=== PATIENT | male | born 1965 ===

== ENCOUNTER 2019-05-30 19:04 | Observation (INO) | payer BC ==
[2019-05-30] MEDS ORDERED: Sodium Chloride 0.9% 1,000 ML IV ONE (19:45)
[2019-05-30] MEDS ORDERED: Sodium Chloride 0.9% 10 ML Syringe FLUSH PRN (19:45)
[2019-05-30] MEDS ORDERED: Sodium Chloride 0.9% 2.5 ML Syringe FLUSH PRN (19:45)
[2019-05-30] MEDS ORDERED: Ketorolac 30 MG/ML SDV IVPUSH ONE (19:45)
[2019-05-30] MEDS ORDERED: diphenhydrAMINE 50 MG/ML SDV IVPUSH ONE (19:45)
[2019-05-30] MEDS ORDERED: methylPREDNISolone Sodium Succinate 125 MG/2 ML SDV IVPUSH ONE (19:45)
--- NOTE | 2019-05-30 19:49 | EDM.PDOC ---
ED HPI GENERAL MEDICAL PROBLEM - General Chief Complaint: Skin Complaint Stated Complaint: ABDOMINAL RASH Time Seen by Provider: 05/30/19 19:39 - History of Present Illness INITIAL COMMENTS - FREE TEXT/NARRATIVE: HISTORY AND PHYSICAL: History of present illness: The patient is a 53-year-old male with no stated medical history who takes no regular medications and presents with 2 problems, the first is a 1 week history of lightheadedness malaise generalized weakness feeling rundown but no specific fever cough chest pain abdominal pain vomiting or diarrhea. His second complaint is that yesterday he started getting a rash on his chest and abdomen which was raised red and itchy and burning and it has progressed to the rest of his body. He has taken 1 dose of Benadryl yesterday which did not help and 1 Tylenol PM this evening. He states he has no new foods in his world or any new products. He says it is burning and itchy but he does not feel short of breath or have any facial or oropharyngeal swelling and no trouble swallowing. The patient says he has been had this dizziness and lightheadedness which is very vague for the last 1 week and feeling rundown but he is not passing out or blacking out and has no head neck or back pain no other associated symptoms. He says that he has been pushing hydration and eating normally. He tells me that his urine is very dark and concentrated but he has no flank pain and no pelvic pain. Currently in the ED he is only complaining of the rash and the burning and itching as well as concern about his other symptoms that are been ongoing for the last 1 week. No focal extremity weakness or tingling and he has been able to go to work and perform his duties despite the symptoms for the last 1 week Review of systems: As per history of present illness and below otherwise all systems reviewed and negative. Past medical history: As per history of present illness and as reviewed below otherwise noncontributory. Surgical history: As per history of present illness and as reviewed below otherwise noncontributory. Social history: No reported history of drug or alcohol abuse. Family history: As per history of present illness and as reviewed below otherwise noncontributory. Physical exam: Well-developed well-nourished man who clearly has an urticarial/maculopapular rash all over his body clearly seen on arrival to the room. Vital signs are noted by me. He speaking clearly without breathlessness hoarse or muffled voice HEENT: Atraumatic, normocephalic, pupils reactive, negative for conjunctival pallor or scleral icterus, mucous membranes moist, throat clear, neck supple, nontender, trachea midline. No oropharyngeal lesions are seen and no cervical adenopathy either anteriorly or posteriorly, and no nuchal rigidity Lungs: Clear to auscultation, breath sounds equal bilaterally, chest nontender. Heart: S1S2, regular, negative for clicks, rubs, or JVD. Abdomen: Soft, nondistended, nontender. Negative for masses or hepatosplenomegaly. Negative for costovertebral tenderness. Do not appreciate any specific tenderness in the liver or spleen areas nor any enlargement. Pelvis: Stable nontender. Genitourinary: Deferred. Rectal: Deferred. Extremities: Atraumatic, negative for cords or calf pain. Neurovascular unremarkable. Neuro: Awake, alert, oriented. Cranial nerves II through XII unremarkable. Cerebellum unremarkable. Motor and sensory unremarkable throughout. Exam nonfocal. Skin: Throughout the body there is a maculopapular/urticarial rash with areas of coalescence seen the most noteworthy is on the trunk and the upper chest and abdomen as well as the upper back but it is all over the extremities his face and his scalp. There were no vesicles Diagnostics: EKG CBC CMP chest x-ray troponin INR UA with reflex rapid strep influenza lactic acid mono screnn Therapeutics: IV fluids Benadryl Solu-Medrol Toradol vistaril 0: All testing results were discussed with the patient and her hospitalist Dr. Joshua and the patient will be admitted for observation. Impression: Mononucleosis syndrome Definitive disposition and diagnosis as appropriate pending reevaluation and review of above. Treatments K[employer] HEAD: Reports: Acetaminophen - Related Data Allergies Allergy/AdvReac Type Severity Reaction Status Date / Time No Known Allergies Allergy Verified 05/30/19 19:31 Home Meds: Home Meds . [No Known Home Meds] 05/30/19 [History] ED ROS GENERAL - Review of Systems Review Of Systems: Comprehensive ROS is negative, except as noted in HPI. ED EXAM, SKIN/RASH Exam: See Below (see Dictation) Course - Vital Signs Last Recorded V/S: Last Vital Signs Temp 36.7 C 05/30/19 19:25 Pulse 95 05/30/19 19:25 Resp 18 05/30/19 19:25 BP 142/86 H 05/30/19 19:25 Pulse Ox 98 05/30/19 19:25 - Orders/Labs/Meds Orders: Active Orders 24 hr Category Date Time Status Patient Status [ADT] Stat ADT 05/30/19 21:23 Ordered EKG Documentation Completion [RC] STAT Care 05/30/19 19:44 Active CULTURE STREP A CONFIRMATION [] Stat Lab 05/30/19 20:30 Results STREP SCRN A RAPID W CULT CONF [] Stat Lab 05/30/19 20:30 Results Sodium Chloride 0.9% [Normal Saline] 1,000 ml Med 05/30/19 21:30 Active IV ASDIRECTED Sodium Chloride 0.9% [Saline Flush] Med 05/30/19 19:45 Active 10 ml FLUSH ASDIRECTED PRN Sodium Chloride 0.9% [Saline Flush] Med 05/30/19 19:45 Active 2.5 ml FLUSH ASDIRECTED PRN Saline Lock Insert [OM.PC] Stat Oth 05/30/19 19:44 Ordered Medication Orders Sodium Chloride (Normal Saline) 1,000 mls @ 150 mls/hr IV ASDIRECTED ALYSSA Sodium Chloride (Saline Flush) 10 ml FLUSH ASDIRECTED PRN PRN Reason: Keep Vein Open Sodium Chloride (Saline Flush) 2.5 ml FLUSH ASDIRECTED PRN PRN Reason: Keep Vein Open Labs: Laboratory Tests 05/30/19 05/30/19 05/30/19 Range/Units 20:00 20:00 20:00 WBC 29.69 H (4.0-11.0) K/uL RBC 4.99 (4.50-5.90) M/uL Hgb 14.3 (13.0-17.0) g/dL Hct 41.5 (38.0-50.0) % MCV 83.2 (80.0-98.0) fL MCH 28.7 (27.0-32.0) pg MCHC 34.5 (31.0-37.0) g/dL RDW Std Deviation 45.3 (28.0-62.0) fl RDW Coeff of Palak 15 (11.0-15.0) % Plt Count 317 (150-400) K/uL MPV 10.20 (7.40-12.00) fL Add Manual Diff YES Neutrophils % (Manual) 10 L (48.0-80.0) % Band Neutrophils % 9 % Lymphocytes % (Manual) 69 H (16.0-40.0) % Monocytes % (Manual) 12 (0.0-15.0) % Nucleated RBC % 3.0 /100WBC Absolute Seg Neuts 3.0 (1.4-5.7) Band Neutrophils # 2.7 Lymphocytes # (Manual) 20.5 H (0.6-2.4) Monocytes # (Manual) 3.6 H (0.0-0.8) Nucleated RBCs # 0 K/uL INR 0.99 Lactate 1.1 (0.20-2.00) mmol/L Sodium (136-148) mmol/L Potassium (3.5-5.1) mmol/L Chloride (98-107) mmol/L Carbon Dioxide (21.0-32.0) mmol/L BUN (7.0-18.0) mg/dL Creatinine (0.8-1.3) mg/dL Est Cr Clr Drug Dosing mL/min Estimated GFR (MDRD) ml/min Glucose (74-106) mg/dL Calcium (8.5-10.1) mg/dL Total Bilirubin (0.2-1.0) mg/dL AST (15-37) IU/L ALT (14-63) IU/L Alkaline Phosphatase (46-116) U/L Troponin I (0.000-0.056) ng/mL Total Protein (6.4-8.2) g/dL Albumin (3.4-5.0) g/dL Globulin (2.6-4.0) g/dL Albumin/Globulin Ratio (0.9-1.6) Urine Color Urine Appearance Urine pH (5.0-8.0) Ur Specific Fox (1.001-1.035) Urine Protein (NEGATIVE) mg/dL Urine Glucose (UA) (NEGATIVE) mg/dL Urine Ketones (NEGATIVE) mg/dL Urine Occult Blood (NEGATIVE) Urine Nitrite (NEGATIVE) Urine Bilirubin (NEGATIVE) Urine Ictotest Urine Urobilinogen (<2.0) EU/dL Ur Leukocyte Esterase (NEGATIVE) Monoscreen (NEG) 05/30/19 05/30/19 05/30/19 Range/Units 20:00 20:20 20:35 WBC (4.0-11.0) K/uL RBC (4.50-5.90) M/uL Hgb (13.0-17.0) g/dL Hct (38.0-50.0) % MCV (80.0-98.0) fL MCH (27.0-32.0) pg MCHC (31.0-37.0) g/dL RDW Std Deviation (28.0-62.0) fl RDW Coeff of Palak (11.0-15.0) % Plt Count (150-400) K/uL MPV (7.40-12.00) fL Add Manual Diff Neutrophils % (Manual) (48.0-80.0) % Band Neutrophils % % Lymphocytes % (Manual) (16.0-40.0) % Monocytes % (Manual) (0.0-15.0) % Nucleated RBC % /100WBC Absolute Seg Neuts (1.4-5.7) Band Neutrophils # Lymphocytes # (Manual) (0.6-2.4) Monocytes # (Manual) (0.0-0.8) Nucleated RBCs # K/uL INR Lactate (0.20-2.00) mmol/L Sodium 133 L (136-148) mmol/L Potassium 4.2 (3.5-5.1) mmol/L Chloride 96 L (98-107) mmol/L Carbon Dioxide 27.7 (21.0-32.0) mmol/L BUN 16 (7.0-18.0) mg/dL Creatinine 1.1 (0.8-1.3) mg/dL Est Cr Clr Drug Dosing 87.20 mL/min Estimated GFR (MDRD) > 60.0 ml/min Glucose 107 H (74-106) mg/dL Calcium 8.8 (8.5-10.1) mg/dL Total Bilirubin 5.8 H (0.2-1.0) mg/dL AST 115 H (15-37) IU/L ALT 242 H (14-63) IU/L Alkaline Phosphatase 501 H (46-116) U/L Troponin I < 0.050 (0.000-0.056) ng/mL Total Protein 7.3 (6.4-8.2) g/dL Albumin 3.1 L (3.4-5.0) g/dL Globulin 4.2 H (2.6-4.0) g/dL Albumin/Globulin Ratio 0.7 L (0.9-1.6) Urine Color YELLOW Urine Appearance CLEAR Urine pH 5.5 (5.0-8.0) Ur Specific Fox <= 1.005 (1.001-1.035) Urine Protein NEGATIVE (NEGATIVE) mg/dL Urine Glucose (UA) NEGATIVE (NEGATIVE) mg/dL Urine Ketones NEGATIVE (NEGATIVE) mg/dL Urine Occult Blood NEGATIVE (NEGATIVE) Urine Nitrite NEGATIVE (NEGATIVE) Urine Bilirubin MODERATE H (NEGATIVE) Urine Ictotest POSITIVE Urine Urobilinogen 0.2 (<2.0) EU/dL Ur Leukocyte Esterase NEGATIVE (NEGATIVE) Monoscreen POSITIVE (NEG) Meds: Medications Generic Name Dose Route Start Last Admin Trade Name Freq PRN Reason Stop Dose Admin Sodium Chloride 1,000 mls @ 150 mls/hr 05/30/19 21:30 Normal Saline IV ASDIRECTED ALYSSA Sodium Chloride 10 ml 05/30/19 19:45 Saline Flush FLUSH ASDIRECTED PRN Keep Vein Open Sodium Chloride 2.5 ml 05/30/19 19:45 Saline Flush FLUSH ASDIRECTED PRN Keep Vein Open Discontinued Medications Generic Name Dose Route Start Last Admin Trade Name Freq PRN Reason Stop Dose Admin Diphenhydramine HCl 50 mg 05/30/19 19:45 05/30/19 20:03 Benadryl IVPUSH 05/30/19 19:46 50 mg ONETIME ONE Administration Hydroxyzine Pamoate 25 mg 05/30/19 21:18 Vistaril PO 05/30/19 21:19 ONETIME ONE Sodium Chloride 1,000 mls @ 999 mls/hr 05/30/19 19:45 05/30/19 20:03 Normal Saline IV 05/30/19 20:45 999 mls/hr STAT ONE Administration Ketorolac Tromethamine 30 mg 05/30/19 19:45 05/30/19 20:03 Toradol IVPUSH 05/30/19 19:46 30 mg ONETIME ONE Administration Methylprednisolone Sodium Succinate 125 mg 05/30/19 19:45 05/30/19 20:03 Solu-Medrol IVPUSH 05/30/19 19:46 125 mg ONETIME ONE Administration Departure - Departure Time of Disposition: 21:25 Disposition: Refer to Observation Condition: Good Clinical Impression: Mononucleosis syndrome - Discharge Information Referrals: PCP,Not In Area [Primary Care Provider] - Forms: ED Department Discharge Sepsis Event Note - Evaluation Sepsis Screening Result: No Definite Risk - Focused Exam Vital Signs: Vital Signs Temp Pulse Resp BP Pulse Ox 05/30/19 19:25 36.7 C 95 18 142/86 H 98 Date Exam was Performed: 05/30/19 Time Exam was Performed: 21:24 - My Orders Last 24 Hours: My Active Orders 05/30/19 19:44 EKG Documentation Completion [RC] STAT Saline Lock Insert [OM.PC] Stat 05/30/19 19:45 Sodium Chloride 0.9% [Saline Flush] 10 ml FLUSH ASDIRECTED PRN Sodium Chloride 0.9% [Saline Flush] 2.5 ml FLUSH ASDIRECTED PRN 05/30/19 20:30 CULTURE STREP A CONFIRMATION [RM] Stat STREP SCRN A RAPID W CULT CONF [RM] Stat 05/30/19 21:23 Patient Status [ADT] Stat 05/30/19 21:30 Sodium Chloride 0.9% [Normal Saline] 1,000 ml IV ASDIRECTED - Assessment/Plan Last 24 Hours: My Active Orders 05/30/19 19:44 EKG Documentation Completion [RC] STAT Saline Lock Insert [OM.PC] Stat 05/30/19 19:45 Sodium Chloride 0.9% [Saline Flush] 10 ml FLUSH ASDIRECTED PRN Sodium Chloride 0.9% [Saline Flush] 2.5 ml FLUSH ASDIRECTED PRN 05/30/19 20:30 CULTURE STREP A CONFIRMATION [RM] Stat STREP SCRN A RAPID W CULT CONF [RM] Stat 05/30/19 21:23 Patient Status [ADT] Stat 05/30/19 21:30 Sodium Chloride 0.9% [Normal Saline] 1,000 ml IV ASDIRECTED
[2019-05-30 20:41] LABS: BLOOD UREA NITROGEN,BUN 16 mg/dL (7.0-18.0); CARBON DIOXIDE,CO2 27.7 mmol/L (21.0-32.0); CHLORIDE,CL 96 mmol/L (98-107); GLUCOSE RANDOM 107 mg/dL (74-106); POTASSIUM,K 4.2 mmol/L (3.5-5.1); SODIUM,NA 133 mmol/L (136-148)
--- NOTE | 2019-05-30 20:47 | CR ---
Chest: Frontal view of the chest was obtained. Comparison: No prior chest x-ray. Heart size and mediastinum are normal. Minimal left midlung atelectasis is noted. Lungs otherwise are clear. Bony structures are grossly intact. Impression: 1. Minimal left midlung atelectasis. 2. Nothing acute is otherwise appreciated on frontal chest x-ray. Diagnostic code #2 Study was dictated in [place] Standard Time
[2019-05-30] MEDS ORDERED: hydrOXYzine Pamoate 25 MG Cap PO ONE (21:18)
[2019-05-30] MEDS ORDERED: Sodium Chloride 0.9% 1,000 ML IV SCH (21:30)
[2019-05-31] MEDS: Sodium Chloride 0.9% 1,000 ML IV SCH ×3 (05:03→21:14)
[2019-05-31 06:52] LABS: BLOOD UREA NITROGEN,BUN 16 mg/dL (7.0-18.0); CARBON DIOXIDE,CO2 26.2 mmol/L (21.0-32.0); CHLORIDE,CL 105 mmol/L (98-107); GLUCOSE RANDOM 159 mg/dL (74-106); POTASSIUM,K 4.9 mmol/L (3.5-5.1); SODIUM,NA 138 mmol/L (136-148)
[2019-05-31] MEDS ORDERED: Ondansetron 4 MG/2 ML SDV IVPUSH PRN (10:52)
--- NOTE | 2019-05-31 10:59 | PCM.HP.2 ---
H&P History of Present Illness - General Date of Service: 05/31/19 Admit Problem/Dx: Admission Diagnosis/Problem Admission Diagnosis/Problem Mononucleosis syndrome Source of Information: Patient History Limitations: Reports: No Limitations - History of Present Illness Initial Comments - Free Text/Narative: This 53 year old male, otherwise healthy presented to the ED with complaints of rash that started yesterday morning and progressively worsened through the day. He reports it was itching and noticed it started to spread from his trunk to arms and legs. He reports over the last couple weeks he has felt very fatigued and had a poor appetite and little interest in eating. He reports he has beeen taking some Vitamin C daily with [place] seltzer cold and flu twice daily. He reports some night sweats, no overt fevers. No URI symptoms such as sore throat or sinus congestion, no swollen tender lymph nodes to neck. No abdominal pain or trouble urinating. Reports dark urine the last few days. No chest pain or SOB. No diarrhea or constipation. No swelling or focal neurological deficits. He reports he drinks beer 4 nights a week 2-6 daily, 6 more so on the weekends. He denies tobacco or recreational drug use. In the ED Leukocytosis noted 26,6900, neutrophils decreased along with elevated lymphocytes.Cl 96 Bilirubin elevated at 5.8 AST 115, ALT 242 and alk phos 501. CXR negative. [place] screen positive. - Related Data Allergies/Adverse Reactions: Allergies Allergy/AdvReac Type Severity Reaction Status Date / Time No Known Allergies Allergy Verified 05/31/19 06:31 Home Medications: Home Meds . [No Known Home Meds] 05/30/19 [History] Past Medical History HEENT History: Reports: None Cardiovascular History: Reports: None. Denies: Afib, Hypertension Respiratory History: Reports: None. Denies: COPD Gastrointestinal History: Reports: None. Denies: GI Bleed Genitourinary History: Reports: None. Denies: Chronic Renal Insuffiency Musculoskeletal History: Reports: None Neurological History: Reports: None Psychiatric History: Reports: None Endocrine/Metabolic History: Reports: None. Denies: Diabetes, Type II Insulin Pump Model and Automotive Detailer: None Hematologic History: Reports: None Oncologic (Cancer) History: Reports: None Dermatologic History: Reports: None - Infectious Disease History Infectious Disease History: Reports: None - Past Surgical History Head Surgeries/Procedures: Reports: None HEENT Surgical History: Reports: Tonsillectomy Social & Family History - Family History Family Medical History: Noncontributory - Tobacco Use Smoking Status *Q: Never Smoker Second Hand Smoke Exposure: No - Caffeine Use Caffeine Use: Reports: Coffee - Alcohol Use Days Per Week of Alcohol Use: 1 Number of Drinks Per Day: 0 Total Drinks Per Week: 0 Date of Last Drink: 05/29/19 Time of Last Drink: 20:00 - Recreational Drug Use Recreational Drug Use: No - Living Situation & Occupation Occupation: Employed H&P Review of Systems - Review of Systems: Review Of Systems: See Below General: Reports: Malaise, Weakness, Fatigue, Night Sweats, Decreased Appetite. Denies: Fever, Chills HEENT: Reports: Headaches, Vertigo. Denies: Sinus Congestion, Sore Throat Pulmonary: Reports: No Symptoms. Denies: Shortness of Breath Cardiovascular: Reports: No Symptoms. Denies: Chest Pain Gastrointestinal: Reports: No Symptoms. Denies: Abdominal Pain, Black Stool, Bloody Stool, Nausea, Vomiting Musculoskeletal: Reports: No Symptoms. Denies: Neck Pain Neurological: Reports: No Symptoms Hematologic/Lymphatic: Reports: No Symptoms Immunologic: Reports: No Symptoms Exam - Exam Exam: See Below - Vital Signs Vital Signs: Last Vital Signs Temp 98.1 F 05/31/19 07:00 Pulse 80 05/31/19 07:00 Resp 18 05/31/19 07:00 BP 111/69 05/31/19 07:00 Pulse Ox 95 05/31/19 07:00 Weight: 92.986 kg - Exam General: Alert, Oriented, Cooperative HEENT: Mucosa Moist & [place], Pupils Reactive, Scleral Icterus Neck: Supple, Full Range of Motion. No: Lymphadenopathy Lungs: Clear to Auscultation, Normal Respiratory Effort Cardiovascular: Regular Rate, Regular Rhythm GI/Abdominal Exam: Normal Bowel Sounds, Soft, Non-Tender, Splenomegaly Back Exam: Normal Inspection, Full Range of Motion Extremities: Normal Inspection, Normal Range of Motion, Non-Tender, No Pedal Edema Skin: Rash (maculopapular rash noted to trunk inner thighs and arms bilaterally , flushed face and neck noted as well. ) Neuro Extensive - Mental Status: Alert, Oriented x3 Neuro Extensive - Motor, Sensory, Reflexes: CN II-XII Intact Psychiatric: Alert, Normal Affect, Normal Mood - Patient Data Lab Results Last 24 hrs: Laboratory Results - last 24 hr 05/30/19 05/30/19 05/30/19 Range/Units 20:00 20:00 20:00 WBC 29.69 H (4.0-11.0) K/uL RBC 4.99 (4.50-5.90) M/uL Hgb 14.3 (13.0-17.0) g/dL Hct 41.5 (38.0-50.0) % MCV 83.2 (80.0-98.0) fL MCH 28.7 (27.0-32.0) pg MCHC 34.5 (31.0-37.0) g/dL RDW Std Deviation 45.3 (28.0-62.0) fl RDW Coeff of Palak 15 (11.0-15.0) % Plt Count 317 (150-400) K/uL MPV 10.20 (7.40-12.00) fL Add Manual Diff YES Neutrophils % (Manual) 10 L (48.0-80.0) % Band Neutrophils % 9 % Lymphocytes % (Manual) 69 H (16.0-40.0) % Monocytes % (Manual) 12 (0.0-15.0) % Nucleated RBC % 3.0 /100WBC Absolute Seg Neuts 3.0 (1.4-5.7) Band Neutrophils # 2.7 Lymphocytes # (Manual) 20.5 H (0.6-2.4) Monocytes # (Manual) 3.6 H (0.0-0.8) Nucleated RBCs # 0 K/uL Reactive Lymphocytes INR 0.99 Lactate 1.1 (0.20-2.00) mmol/L Sodium (136-148) mmol/L Potassium (3.5-5.1) mmol/L Chloride (98-107) mmol/L Carbon Dioxide (21.0-32.0) mmol/L BUN (7.0-18.0) mg/dL Creatinine (0.8-1.3) mg/dL Est Cr Clr Drug Dosing mL/min Estimated GFR (MDRD) ml/min Glucose (74-106) mg/dL Calcium (8.5-10.1) mg/dL Total Bilirubin (0.2-1.0) mg/dL AST (15-37) IU/L ALT (14-63) IU/L Alkaline Phosphatase (46-116) U/L Troponin I (0.000-0.056) ng/mL Total Protein (6.4-8.2) g/dL Albumin (3.4-5.0) g/dL Globulin (2.6-4.0) g/dL Albumin/Globulin Ratio (0.9-1.6) Urine Color Urine Appearance Urine pH (5.0-8.0) Ur Specific Kinder (1.001-1.035) Urine Protein (NEGATIVE) mg/dL Urine Glucose (UA) (NEGATIVE) mg/dL Urine Ketones (NEGATIVE) mg/dL Urine Occult Blood (NEGATIVE) Urine Nitrite (NEGATIVE) Urine Bilirubin (NEGATIVE) Urine Ictotest Urine Urobilinogen (<2.0) EU/dL Ur Leukocyte Esterase (NEGATIVE) Monoscreen (NEG) 05/30/19 05/30/19 05/30/19 Range/Units 20:00 20:20 20:35 WBC (4.0-11.0) K/uL RBC (4.50-5.90) M/uL Hgb (13.0-17.0) g/dL Hct (38.0-50.0) % MCV (80.0-98.0) fL MCH (27.0-32.0) pg MCHC (31.0-37.0) g/dL RDW Std Deviation (28.0-62.0) fl RDW Coeff of Palak (11.0-15.0) % Plt Count (150-400) K/uL MPV (7.40-12.00) fL Add Manual Diff Neutrophils % (Manual) (48.0-80.0) % Band Neutrophils % % Lymphocytes % (Manual) (16.0-40.0) % Monocytes % (Manual) (0.0-15.0) % Nucleated RBC % /100WBC Absolute Seg Neuts (1.4-5.7) Band Neutrophils # Lymphocytes # (Manual) (0.6-2.4) Monocytes # (Manual) (0.0-0.8) Nucleated RBCs # K/uL Reactive Lymphocytes INR Lactate (0.20-2.00) mmol/L Sodium 133 L (136-148) mmol/L Potassium 4.2 (3.5-5.1) mmol/L Chloride 96 L (98-107) mmol/L Carbon Dioxide 27.7 (21.0-32.0) mmol/L BUN 16 (7.0-18.0) mg/dL Creatinine 1.1 (0.8-1.3) mg/dL Est Cr Clr Drug Dosing 87.20 mL/min Estimated GFR (MDRD) > 60.0 ml/min Glucose 107 H (74-106) mg/dL Calcium 8.8 (8.5-10.1) mg/dL Total Bilirubin 5.8 H (0.2-1.0) mg/dL AST 115 H (15-37) IU/L ALT 242 H (14-63) IU/L Alkaline Phosphatase 501 H (46-116) U/L Troponin I < 0.050 (0.000-0.056) ng/mL Total Protein 7.3 (6.4-8.2) g/dL Albumin 3.1 L (3.4-5.0) g/dL Globulin 4.2 H (2.6-4.0) g/dL Albumin/Globulin Ratio 0.7 L (0.9-1.6) Urine Color YELLOW Urine Appearance CLEAR Urine pH 5.5 (5.0-8.0) Ur Specific Kinder <= 1.005 (1.001-1.035) Urine Protein NEGATIVE (NEGATIVE) mg/dL Urine Glucose (UA) NEGATIVE (NEGATIVE) mg/dL Urine Ketones NEGATIVE (NEGATIVE) mg/dL Urine Occult Blood NEGATIVE (NEGATIVE) Urine Nitrite NEGATIVE (NEGATIVE) Urine Bilirubin MODERATE H (NEGATIVE) Urine Ictotest POSITIVE Urine Urobilinogen 0.2 (<2.0) EU/dL Ur Leukocyte Esterase NEGATIVE (NEGATIVE) Monoscreen POSITIVE (NEG) 05/31/19 05/31/19 Range/Units 06:15 06:15 WBC 15.16 H (4.0-11.0) K/uL RBC 4.78 (4.50-5.90) M/uL Hgb 13.5 (13.0-17.0) g/dL Hct 40.6 (38.0-50.0) % MCV 84.9 (80.0-98.0) fL MCH 28.2 (27.0-32.0) pg MCHC 33.3 (31.0-37.0) g/dL RDW Std Deviation 47.4 (28.0-62.0) fl RDW Coeff of Palak 15 (11.0-15.0) % Plt Count 283 (150-400) K/uL MPV 9.50 (7.40-12.00) fL Add Manual Diff YES Neutrophils % (Manual) 19 L (48.0-80.0) % Band Neutrophils % 4 % Lymphocytes % (Manual) 77 H (16.0-40.0) % Monocytes % (Manual) (0.0-15.0) % Nucleated RBC % 0.0 /100WBC Absolute Seg Neuts 2.9 (1.4-5.7) Band Neutrophils # 0.6 Lymphocytes # (Manual) 11.7 H (0.6-2.4) Monocytes # (Manual) (0.0-0.8) Nucleated RBCs # 0 K/uL Reactive Lymphocytes MODERATE INR Lactate (0.20-2.00) mmol/L Sodium 138 (136-148) mmol/L Potassium 4.9 (3.5-5.1) mmol/L Chloride 105 (98-107) mmol/L Carbon Dioxide 26.2 (21.0-32.0) mmol/L BUN 16 (7.0-18.0) mg/dL Creatinine 1.0 (0.8-1.3) mg/dL Est Cr Clr Drug Dosing 95.92 mL/min Estimated GFR (MDRD) > 60.0 ml/min Glucose 159 H (74-106) mg/dL Calcium 8.2 L (8.5-10.1) mg/dL Total Bilirubin 5.0 H (0.2-1.0) mg/dL AST 88 H (15-37) IU/L ALT 216 H (14-63) IU/L Alkaline Phosphatase 462 H (46-116) U/L Troponin I (0.000-0.056) ng/mL Total Protein 6.7 (6.4-8.2) g/dL Albumin 2.6 L (3.4-5.0) g/dL Globulin 4.1 H (2.6-4.0) g/dL Albumin/Globulin Ratio 0.6 L (0.9-1.6) Urine Color Urine Appearance Urine pH (5.0-8.0) Ur Specific Kinder (1.001-1.035) Urine Protein (NEGATIVE) mg/dL Urine Glucose (UA) (NEGATIVE) mg/dL Urine Ketones (NEGATIVE) mg/dL Urine Occult Blood (NEGATIVE) Urine Nitrite (NEGATIVE) Urine Bilirubin (NEGATIVE) Urine Ictotest Urine Urobilinogen (<2.0) EU/dL Ur Leukocyte Esterase (NEGATIVE) Monoscreen (NEG) Result Diagrams: 05/31/19 06:15 05/31/19 06:15 Nirav Results Last 24 hrs: Microbiology 05/30/19 20:30 Influenza Type A Antigen Screen - Final Nasopharyngeal Swab NEGATIVE INFLUENZA A VIRUS AG REFERENCE RANGE: NEGATIVE Influenza Type B Antigen Screen - Final NEGATIVE INFLUENZA B VIRUS AG REFERENCE RANGE: NEGATIVE 05/30/19 20:30 Group A Streptococcus Rapid Screen - Final Throat NEGATIVE STREP A SCREEN REFERENCE RANGE: NEGATIVE Sepsis Event Note - Evaluation Sepsis Screening Result: No Definite Risk - Focused Exam Vital Signs: Vital Signs Temp Pulse Resp BP Pulse Ox 05/31/19 07:00 98.1 F 80 18 111/69 95 05/31/19 03:37 97.3 F 75 18 111/68 96 Date Exam was Performed: 05/31/19 Time Exam was Performed: 11:10 - Problem List (1) Mononucleosis syndrome SNOMED Code(s): 415272039 ICD Code: B27.90 - INFECTIOUS MONONUCLEOSIS, UNSPECIFIED WITHOUT COMPLICATION Status: Acute Current Visit: Yes (2) Transaminitis SNOMED Code(s): 688512342, 623856143 ICD Code: R74.0 - NONSPEC ELEV OF LEVELS OF TRANSAMNS & LACTIC ACID DEHYDRGNSE Status: Acute Current Visit: Yes (3) Bilirubinemia SNOMED Code(s): 18623715 ICD Code: E80.6 - OTHER DISORDERS OF BILIRUBIN METABOLISM Status: Acute Current Visit: Yes Problem List Initiated/Reviewed/Updated: Yes Orders Last 24hrs: Active Orders 24 hr Category Date Time Status Patient Status [ADT] Stat ADT 05/30/19 21:23 Active Antiembolic Devices [RC] PER UNIT ROUTINE Care 05/31/19 10:53 Ordered Intake and Output [RC] QSHIFT Care 05/31/19 10:52 Ordered Oxygen Therapy [RC] PRN Care 05/31/19 10:52 Ordered Up With Assistance [RC] ASDIRECTED Care 05/31/19 10:52 Ordered VTE/DVT Education [RC] PER UNIT ROUTINE Care 05/31/19 10:52 Ordered Vital Signs [RC] Q4H Care 05/31/19 00:07 Active Vital Signs [RC] Q4H Care 05/31/19 10:52 Inactive Regular Diet [DIET] Diet 05/31/19 Breakfast Active Abdomen Ltd [US] Routine Exams 05/31/19 02:31 Ordered ACETAMINOPHEN [CHEM] Routine Lab 05/31/19 10:53 Ordered CBC WITH AUTO DIFF [HEME] AM Lab 06/01/19 05:11 Ordered COMPREHENSIVE METABOLIC PN,CMP [CHEM] AM Lab 06/01/19 05:11 Ordered CULTURE STREP A CONFIRMATION [RM] Stat Lab 05/30/19 20:30 Results HEPATITIS PANEL (4) [REF] Routine Lab 05/31/19 10:53 Ordered STREP SCRN A RAPID W CULT CONF [RM] Stat Lab 05/30/19 20:30 Results Ondansetron [Zofran] Med 05/31/19 10:52 Ordered 4 mg IVPUSH Q4H PRN Sodium Chloride 0.9% [Normal Saline] 1,000 ml Med 05/31/19 00:15 Active IV ASDIRECTED Sodium Chloride 0.9% [Saline Flush] Med 05/30/19 19:45 Active 10 ml FLUSH ASDIRECTED PRN Sodium Chloride 0.9% [Saline Flush] Med 05/30/19 19:45 Active 2.5 ml FLUSH ASDIRECTED PRN Saline Lock Insert [OM.PC] Stat Oth 05/30/19 19:44 Ordered Sequential Compression Device [OM.PC] Per Unit Routine Oth 05/31/19 10:53 Ordered Resuscitation Status Routine Resus Stat 05/31/19 10:52 Ordered Medication Orders Sodium Chloride (Normal Saline) 1,000 mls @ 125 mls/hr IV ASDIRECTED ALYSSA Last Admin: 05/31/19 05:03 Dose: 125 mls/hr Ondansetron HCl (Zofran) 4 mg IVPUSH Q4H PRN PRN Reason: Nausea Sodium Chloride (Saline Flush) 10 ml FLUSH ASDIRECTED PRN PRN Reason: Keep Vein Open Sodium Chloride (Saline Flush) 2.5 ml FLUSH ASDIRECTED PRN PRN Reason: Keep Vein Open Assessment/Plan Comment:: This 53 year old male admitted with mono with secondary transaminitis and leukocytosis 1. [place]: Supportive care, benadryl for itching of rash. IVFs for hydration. No current pain. Will obtain abdominal US due to transaminitis, will also evaluate hepatitis panel and obtain acetaminophen level. Repeat labwork in am. VTE prophylaxis: SCDs and ambulation Dispo: 1-2 days pending improvement. - Mortality Measure Prognosis:: Good
[2019-05-31] MEDS: diphenhydrAMINE 25 MG Cap PO PRN ×2 (11:47→19:21)
--- NOTE | 2019-05-31 13:44 | US ---
Abdominal ultrasound: Multiple real-time images of the abdomen were obtained. Liver shows no focal parenchymal abnormality. Gallbladder is contracted and no further comment can be made. Kidneys show no hydronephrosis or mass. Right kidney length is 11.5 cm and left kidney length is 11.8 cm. Spleen measures mildly prominent at 14.7 cm. Pancreas is incompletely seen due to bowel gas. Visualized portions of the aorta shows no aneurysm. Impression: 1. Mild splenomegaly. 2. Contracted gallbladder and no further comments can be made. 3. Poorly seen pancreas due to bowel gas. 4. No additional abnormality is appreciated. Diagnostic code #3 This report was dictated in [place] Standard Time
[2019-06-01] MEDS: Sodium Chloride 0.9% 1,000 ML IV SCH ×3 (05:11→21:15)
[2019-06-01 06:42] LABS: BLOOD UREA NITROGEN,BUN 16 mg/dL (7.0-18.0); CARBON DIOXIDE,CO2 24.6 mmol/L (21.0-32.0); CHLORIDE,CL 104 mmol/L (98-107); GLUCOSE RANDOM 95 mg/dL (74-106); POTASSIUM,K 4.5 mmol/L (3.5-5.1); SODIUM,NA 137 mmol/L (136-148)
--- NOTE | 2019-06-01 12:25 | PCM.PN ---
- General Info Date of Service: 06/01/19 Subjective Update: Patient reports he is feeling better. Rash improving. Eating and drinking without issue. - Review of Systems General: Reports: No Symptoms HEENT: Reports: No Symptoms Pulmonary: Reports: No Symptoms Cardiovascular: Reports: No Symptoms Gastrointestinal: Reports: No Symptoms Genitourinary: Reports: No Symptoms Musculoskeletal: Reports: No Symptoms Skin: Reports: No Symptoms Neurological: Reports: No Symptoms Psychiatric: Reports: No Symptoms - Patient Data Vitals - Most Recent: Last Vital Signs Temp 98.0 F 06/01/19 12:00 Pulse 92 06/01/19 12:00 Resp 18 06/01/19 12:00 BP 110/65 06/01/19 12:00 Pulse Ox 96 06/01/19 08:00 Weight - Most Recent: 92.986 kg I&O - Last 24 Hours: Intake & Output 05/31/19 06/01/19 06/01/19 22:59 06:59 14:59 Intake Total 1540 3685 Output Total 1150 875 Balance 390 2810 Lab Results Last 24 Hours: Laboratory Results - last 24 hr 06/01/19 06/01/19 Range/Units 06:00 06:00 WBC 19.46 H (4.0-11.0) K/uL RBC 4.68 (4.50-5.90) M/uL Hgb 13.1 (13.0-17.0) g/dL Hct 40.2 (38.0-50.0) % MCV 85.9 (80.0-98.0) fL MCH 28.0 (27.0-32.0) pg MCHC 32.6 (31.0-37.0) g/dL RDW Std Deviation 49.7 (28.0-62.0) fl RDW Coeff of Palak 16 H (11.0-15.0) % Plt Count 256 (150-400) K/uL MPV 9.60 (7.40-12.00) fL Add Manual Diff YES Neutrophils % (Manual) 12 L (48.0-80.0) % Band Neutrophils % 7 % Lymphocytes % (Manual) 72 H (16.0-40.0) % Monocytes % (Manual) 5 (0.0-15.0) % Eosinophils % (Manual) 3 (0.0-7.0) % Metamyelocytes % 1 % Nucleated RBC % 0.0 /100WBC Absolute Seg Neuts 2.3 (1.4-5.7) Band Neutrophils # 1.4 Lymphocytes # (Manual) 14.0 H (0.6-2.4) Monocytes # (Manual) 1.0 H (0.0-0.8) Eosinophils # (Manual) 0.6 (0.0-0.7) Absolute Metamyelocyte 0.2 Nucleated RBCs # 0 K/uL Reactive Lymphocytes MODERATE Sodium 137 (136-148) mmol/L Potassium 4.5 (3.5-5.1) mmol/L Chloride 104 (98-107) mmol/L Carbon Dioxide 24.6 (21.0-32.0) mmol/L BUN 16 (7.0-18.0) mg/dL Creatinine 1.2 (0.8-1.3) mg/dL Est Cr Clr Drug Dosing 79.94 mL/min Estimated GFR (MDRD) > 60.0 ml/min Glucose 95 (74-106) mg/dL Calcium 7.9 L (8.5-10.1) mg/dL Total Bilirubin 3.4 H (0.2-1.0) mg/dL AST 80 H (15-37) IU/L ALT 189 H (14-63) IU/L Alkaline Phosphatase 411 H (46-116) U/L Total Protein 6.0 L (6.4-8.2) g/dL Albumin 2.3 L (3.4-5.0) g/dL Globulin 3.7 (2.6-4.0) g/dL Albumin/Globulin Ratio 0.6 L (0.9-1.6) Nirav Results Last 24 Hours: Microbiology 05/30/19 20:30 Quick Strep Confirmation Culture - Final Throat NO GROUP A STREP ISOLATED REFERENCE RANGE: NEGATIVE Group A Streptococcus Rapid Screen - Final NEGATIVE STREP A SCREEN REFERENCE RANGE: NEGATIVE Med Orders - Current: Current Medications Diphenhydramine HCl (Benadryl) 25 mg PO Q6H PRN PRN Reason: Itching Last Admin: 05/31/19 19:21 Dose: 25 mg Sodium Chloride (Normal Saline) 1,000 mls @ 125 mls/hr IV ASDIRECTED ALYSSA Last Admin: 06/01/19 05:11 Dose: 125 mls/hr Ondansetron HCl (Zofran) 4 mg IVPUSH Q4H PRN PRN Reason: Nausea Sodium Chloride (Saline Flush) 10 ml FLUSH ASDIRECTED PRN PRN Reason: Keep Vein Open Sodium Chloride (Saline Flush) 2.5 ml FLUSH ASDIRECTED PRN PRN Reason: Keep Vein Open Discontinued Medications Diphenhydramine HCl (Benadryl) 50 mg IVPUSH ONETIME ONE Stop: 05/30/19 19:46 Last Admin: 05/30/19 20:03 Dose: 50 mg Hydroxyzine Pamoate (Vistaril) 25 mg PO ONETIME ONE Stop: 05/30/19 21:19 Last Admin: 05/30/19 21:31 Dose: 25 mg Sodium Chloride (Normal Saline) 1,000 mls @ 999 mls/hr IV STAT ONE Stop: 05/30/19 20:45 Last Admin: 05/30/19 20:03 Dose: 999 mls/hr Sodium Chloride (Normal Saline) 1,000 mls @ 150 mls/hr IV ASDIRECTED ALYSSA Last Admin: 05/30/19 21:31 Dose: 150 mls/hr Ketorolac Tromethamine (Toradol) 30 mg IVPUSH ONETIME ONE Stop: 05/30/19 19:46 Last Admin: 05/30/19 20:03 Dose: 30 mg Methylprednisolone Sodium Succinate (Solu-Medrol) 125 mg IVPUSH ONETIME ONE Stop: 05/30/19 19:46 Last Admin: 05/30/19 20:03 Dose: 125 mg - Exam General: Alert, Oriented Lungs: Clear to Auscultation, Normal Respiratory Effort Cardiovascular: Regular Rate, Regular Rhythm GI/Abdominal Exam: Normal Bowel Sounds, Soft, Non-Tender, No Distention Extremities: No Pedal Edema Skin: Warm, Dry Neurological: No New Focal Deficit Psy/Mental Status: Alert, Normal Affect, Normal Mood Sepsis Event Note - Evaluation Sepsis Screening Result: No Definite Risk - Focused Exam Vital Signs: Vital Signs Temp Pulse Resp BP Pulse Ox 06/01/19 12:00 98.0 F 92 18 110/65 06/01/19 08:00 98.2 F 93 20 124/71 96 06/01/19 04:00 99.3 F 90 18 118/64 95 Date Exam was Performed: 02/05/20 Time Exam was Performed: 12:21 - Problem List Review Problem List Initiated/Reviewed/Updated: Yes - Plan Plan:: This 53 year old male admitted with mono with secondary transaminitis and leukocytosis 1. [place]: Supportive care, Benadryl for itching of rash. IVFs for hydration. No current pain. 2. Transaminitis- Improving. US showed splenomegaly/GB contracted. Hepatitis panel pending. VTE prophylaxis: SCDs and ambulation
[2019-06-02] MEDS: Sodium Chloride 0.9% 1,000 ML IV SCH (05:10)
[2019-06-02 06:46] LABS: BLOOD UREA NITROGEN,BUN 11 mg/dL (7.0-18.0); CARBON DIOXIDE,CO2 26.4 mmol/L (21.0-32.0); CHLORIDE,CL 100 mmol/L (98-107); GLUCOSE RANDOM 170 mg/dL (74-106); POTASSIUM,K 4.2 mmol/L (3.5-5.1); SODIUM,NA 134 mmol/L (136-148)
--- NOTE | 2019-06-02 08:24 | PCM.DCSUM1 ---
<Janice Lama - Last Filed: 06/02/19 10:52> Discharge Summary - Hospital Course HPI Initial Comments: Admission Date: 05/30/19 Discharge Date: 06/02/19 Admission Diagnosis: 1. Mononucleosis 2. Transaminitis Discharge Diagnosis: 1. Mononucleosis 2. Transaminitis- improved Procedures: None Consults: None Hospital Course: The patient is a 53 year old male who denies any significant past medical history who presented to the ER with rash, fatigue, and poor appetite. In the ER, had leukocytosis of 27, elevated LFTs, negative CXR, and was positive for mono. Was admitted to the medical floor, started on IVF and given Benadryl for itchy rash. Obtained US of abdomen which showed splenomegaly and contracted gallbladder. Hepatitis panel was negative. By day of discharge, LFTs were improving,rash had improved, patient had no pain and was requesting discharge. Disposition: Home Discharge Condition: vitals stable, tolerating oral diet, ambulating without difficulty, symptom improvement Discharge Instructions: regular diet as tolerated, activity as tolerated, take medications as prescribed. Symptoms to report to physician include fever/chills , chest pain, shortness of breath, abdominal pain erythema, drainage/discharge, or not improving as expected. No high contact activities due to enlarged spleen. Discharge Medications: none Follow-up: PCP- Christie Josue- 06/07/19 - Discharge Data Discharge Date: 06/02/19 Discharge Disposition: Home, Self-Care 01 Condition: Fair - Referral to Home Health Primary Care Physician: PCP Not In Area - Discharge Plan Home Medications: Home Meds . [No Known Home Meds] 05/30/19 [History] Patient Handouts: Infectious Mononucleosis, [id number] Referrals: Christie Josue PA [Physician Monitoring Analyst] - 06/07/19 2:00 pm - Discharge Summary/Plan Comment DC Time >30 min.: No - Patient Data Vitals - Most Recent: Last Vital Signs Temp 97.9 F 06/02/19 04:53 Pulse 82 06/02/19 04:53 Resp 18 06/02/19 04:53 BP 128/75 06/02/19 04:53 Pulse Ox 95 06/02/19 04:53 Weight - Most Recent: 92.986 kg I&O - Last 24 hours: Intake & Output 06/01/19 06/02/19 06/02/19 22:59 06:59 14:59 Intake Total 2775 1364 Output Total 2615 8915 Balance 300 499 Lab Results - Last 24 hrs: Laboratory Results - last 24 hr 05/31/19 06/02/19 06/02/19 Range/Units 11:17 06:07 06:07 WBC 24.79 H (4.0-11.0) K/uL RBC 4.70 (4.50-5.90) M/uL Hgb 13.3 (13.0-17.0) g/dL Hct 40.7 (38.0-50.0) % MCV 86.6 (80.0-98.0) fL MCH 28.3 (27.0-32.0) pg MCHC 32.7 (31.0-37.0) g/dL RDW Std Deviation 50.9 (28.0-62.0) fl RDW Coeff of Palak 16 H (11.0-15.0) % Plt Count 249 (150-400) K/uL MPV 9.80 (7.40-12.00) fL Add Manual Diff YES Neutrophils % (Manual) 13 L (48.0-80.0) % Lymphocytes % (Manual) 14 L (16.0-40.0) % Monocytes % (Manual) 13 (0.0-15.0) % Nucleated RBC % 0.2 /100WBC Absolute Seg Neuts 3.2 (1.4-5.7) Lymphocytes # (Manual) 3.5 H (0.6-2.4) Monocytes # (Manual) 3.2 H (0.0-0.8) Nucleated RBCs # 0 K/uL Sodium 134 L (136-148) mmol/L Potassium 4.2 (3.5-5.1) mmol/L Chloride 100 (98-107) mmol/L Carbon Dioxide 26.4 (21.0-32.0) mmol/L BUN 11 (7.0-18.0) mg/dL Creatinine 1.1 (0.8-1.3) mg/dL Est Cr Clr Drug Dosing 87.20 mL/min Estimated GFR (MDRD) > 60.0 ml/min Glucose 170 H (74-106) mg/dL Calcium 8.0 L (8.5-10.1) mg/dL Total Bilirubin 2.6 H (0.2-1.0) mg/dL AST 63 H (15-37) IU/L ALT 159 H (14-63) IU/L Alkaline Phosphatase 399 H (46-116) U/L Total Protein 5.9 L (6.4-8.2) g/dL Albumin 2.2 L (3.4-5.0) g/dL Globulin 3.7 (2.6-4.0) g/dL Albumin/Globulin Ratio 0.6 L (0.9-1.6) Hepatitis A IgM Ab Negative (Negative) Hep Bs Antigen Negative (Negative) Hep B Core IgM Ab Negative (Negative) Hepatitis C Antibody <0.1 (0.0-0.9) s/co ratio KASSI Results - Last 24 hrs: Microbiology 05/30/19 20:30 Quick Strep Confirmation Culture - Final Throat NO GROUP A STREP ISOLATED REFERENCE RANGE: NEGATIVE Group A Streptococcus Rapid Screen - Final NEGATIVE STREP A SCREEN REFERENCE RANGE: NEGATIVE Med Orders - Current: Current Medications Diphenhydramine HCl (Benadryl) 25 mg PO Q6H PRN PRN Reason: Itching Last Admin: 05/31/19 19:21 Dose: 25 mg Sodium Chloride (Normal Saline) 1,000 mls @ 125 mls/hr IV ASDIRECTED ALYSSA Last Admin: 06/02/19 05:10 Dose: 125 mls/hr Ondansetron HCl (Zofran) 4 mg IVPUSH Q4H PRN PRN Reason: Nausea Sodium Chloride (Saline Flush) 10 ml FLUSH ASDIRECTED PRN PRN Reason: Keep Vein Open Sodium Chloride (Saline Flush) 2.5 ml FLUSH ASDIRECTED PRN PRN Reason: Keep Vein Open Discontinued Medications Diphenhydramine HCl (Benadryl) 50 mg IVPUSH ONETIME ONE Stop: 05/30/19 19:46 Last Admin: 05/30/19 20:03 Dose: 50 mg Hydroxyzine Pamoate (Vistaril) 25 mg PO ONETIME ONE Stop: 05/30/19 21:19 Last Admin: 05/30/19 21:31 Dose: 25 mg Sodium Chloride (Normal Saline) 1,000 mls @ 999 mls/hr IV STAT ONE Stop: 05/30/19 20:45 Last Admin: 05/30/19 20:03 Dose: 999 mls/hr Sodium Chloride (Normal Saline) 1,000 mls @ 150 mls/hr IV ASDIRECTED ALYSSA Last Admin: 05/30/19 21:31 Dose: 150 mls/hr Ketorolac Tromethamine (Toradol) 30 mg IVPUSH ONETIME ONE Stop: 05/30/19 19:46 Last Admin: 05/30/19 20:03 Dose: 30 mg Methylprednisolone Sodium Succinate (Solu-Medrol) 125 mg IVPUSH ONETIME ONE Stop: 05/30/19 19:46 Last Admin: 05/30/19 20:03 Dose: 125 mg <Jacqueline Mckenzie - Last Filed: 06/07/19 19:42> Discharge Summary - Hospital Course HPI Initial Comments: I have seen and evaluated the patient with the resident. I have discussed findings and treatment plan with the resident. I agree with the assessment and plan in the following note. - Referral to Home Health Primary Care Physician: PCP Not In Area - Patient Data Vitals - Most Recent: Last Vital Signs Temp 37.2 C 06/02/19 08:00 Pulse 85 06/02/19 08:00 Resp 17 06/02/19 08:00 BP 145/79 H 06/02/19 08:00 Pulse Ox 97 06/02/19 08:00 Med Orders - Current: Current Medications Discontinued Medications Diphenhydramine HCl (Benadryl) 50 mg IVPUSH ONETIME ONE Stop: 05/30/19 19:46 Last Admin: 05/30/19 20:03 Dose: 50 mg Diphenhydramine HCl (Benadryl) 25 mg PO Q6H PRN PRN Reason: Itching Last Admin: 05/31/19 19:21 Dose: 25 mg Hydroxyzine Pamoate (Vistaril) 25 mg PO ONETIME ONE Stop: 05/30/19 21:19 Last Admin: 05/30/19 21:31 Dose: 25 mg Sodium Chloride (Normal Saline) 1,000 mls @ 999 mls/hr IV STAT ONE Stop: 05/30/19 20:45 Last Admin: 05/30/19 20:03 Dose: 999 mls/hr Sodium Chloride (Normal Saline) 1,000 mls @ 150 mls/hr IV ASDIRECTED ALYSSA Last Admin: 05/30/19 21:31 Dose: 150 mls/hr Sodium Chloride (Normal Saline) 1,000 mls @ 125 mls/hr IV ASDIRECTED [facility] Last Admin: 06/02/19 05:10 Dose: 125 mls/hr Ketorolac Tromethamine (Toradol) 30 mg IVPUSH ONETIME ONE Stop: 05/30/19 19:46 Last Admin: 05/30/19 20:03 Dose: 30 mg Methylprednisolone Sodium Succinate (Solu-Medrol) 125 mg IVPUSH ONETIME ONE Stop: 05/30/19 19:46 Last Admin: 05/30/19 20:03 Dose: 125 mg Ondansetron HCl (Zofran) 4 mg IVPUSH Q4H PRN PRN Reason: Nausea Sodium Chloride (Saline Flush) 10 ml FLUSH ASDIRECTED PRN PRN Reason: Keep Vein Open Sodium Chloride (Saline Flush) 2.5 ml FLUSH ASDIRECTED PRN PRN Reason: Keep Vein Open
== END 2019-06-02 12:00 | disposition home or self-care (01) ==
LOC: MW.ED 19:04 → MW.MS 21:23
PROVIDERS: ADMIT Internal Medicine; ATTEND Internal Medicine
DX: B27.90 Infectious mononucleosis, unspecified without complication (principal); R74.0 Nonspecific elevation of levels of transaminase and lactic acid dehydrogenase [LDH]; E80.6 Other disorders of bilirubin metabolism
CPT/HCPCS: 36415; 71045; 76700; 80053; 80074; 80329; 81003; 83605; 84484; 85025; 85610; 86308; 87081; 87804; 87880; 96361; 96374; 96375; 99285; A9270; J1200; J1885; J2930; J7030; 99284; G0378; G0480